=== PATIENT | male | born 1945 | race Caucasian/White ===

== ENCOUNTER → 2018-08-09 | Outpatient (REF) ==
[~2018-08-09] MED LIST: NO HOME MEDICATIONS; VICOPROFEN 201 UDTAB PO
[2018-08-09 16:44] LABS: PSA-TOTAL 4.42 ng/mL (0-4)
[2018-08-09 17:18] LABS: THYROID STIMULATING HORMONE 1.83 uIU/mL (0.465-4.680)
== END ==
LOC: ZLAB.WCH 15:56
PROVIDERS: Family Medicine
DX: Z01.89 Encounter for other specified special examinations (principal)
CPT/HCPCS: G0103

== ENCOUNTER → 2024-06-26 | Outpatient (CLI) | payer MEDICARE ==
[~2024-06-26] MED LIST changes: +FLEXERIL 1010 MG/TAB PO; +LEVOXYL0.125 MG PO; +MELATIN 3 MG-11 TAB PO; +PREDNISONE 5MG5 MG PO; +PRIL40 PO; +TOPROL XL 25MG25 MG PO; +ULTRAM 50MG TAB50 MG PO; +ZOFRAN 4MG T4 MG/TAB PO; +ZOVIRAX800 MG PO; +ZYLOPRIM 100MG100 MG PO
== END ==
LOC: COL.VAS 11:38
DX: I51.7 Cardiomegaly (principal); I34.0 Nonrheumatic mitral (valve) insufficiency; I25.3 Aneurysm of heart